=== PATIENT | female | born 1955 | race Native Hawaiian/Other Pacific Islander ===

== ENCOUNTER 2018-02-15 18:45 | Emergency (ER) | payer OTHER ==
[2018-02-15 18:47] VITALS: BMI 18.5
[2018-02-15 19:10] VITALS: TEMP 98.8
[2018-02-15] MEDS ORDERED: Sodium Chloride 0.9% 1,000 ML IV STA (19:30)
--- NOTE | 2018-02-15 19:35 | ED PDOC ---
Arrival/HPI - General Chief Complaint: Back Pain Time Seen by Provider: 02/15/18 19:23 - History of Present Illness Narrative History of Present Illness (Text): 62 y/o F c PMHx HTN, HLD, breast cancer 2009 s/p total mastectomy p/w L flank pain since last night. Pain is severe, intermittent, like a spasm, LLQ, radiating to L flank, associated with nausea and NBNB vomiting x 1. Denies fever , chills, chest pain, diarrhea, numbness, or weakness. Past Medical History - Cardiac Hx Cardiac Disorders: Yes Hx Hypertension: Yes - Pulmonary Hx Respiratory Disorders: No - Neurological Hx Neurological Disorder: No - HEENT Hx HEENT Disorder: No - Renal Hx Renal Disorder: No - Endocrine/Metabolic Hx Endocrine Disorders: No - Hematological/Oncological Other/Comment: breast cancer - Integumentary Hx Dermatological Disorder: No - Musculoskeletal/Rheumatological Hx Musculoskeletal Disorders: No - Gastrointestinal Hx Gastrointestinal Disorders: No - Genitourinary/Gynecological Hx Genitourinary Disorders: No - Psychiatric Hx Psychophysiologic Disorder: No Hx Substance Use: No - Surgical History Hx Mastectomy: Yes (left) Family/Social History Family/Social History: No Known Family HX Smoking Status: Never Smoked Hx Alcohol Use: No Hx Substance Use: No Allergies/Home Meds Allergies/Adverse Reactions: Allergies Penicillins Allergy (Verified 02/15/18 19:18) RASH Home Medications: Home Meds Medication Instructions Recorded Confirmed Simvastatin [Simvastatin] 20 mg PO DAILY 09/29/15 02/15/18 amLODIPine [Norvasc] 10 mg PO DAILY 09/29/15 02/15/18 Review of Systems - Physician Review All systems were reviewed & negative as marked: Yes - Review of Systems Constitutional: absent: Fevers Respiratory: absent: SOB Physical Exam - Physical Exam Narrative Physical Exam (Text): Gen: NAD Head: NC/AT Eyes: PERRL ENT: MMM Neck: Supple Chest: No tenderness CV: Murmur Lungs: CTA b/l Abd: Soft, NT Back: L CVA tenderness Skin: No rash Extremities: No swelling Neuro: Alert, no focal deficit Vital Signs Temp Pulse Resp BP Pulse Ox 02/15/18 21:42 84 18 148/82 100 02/15/18 21:12 88 24 162/88 H 99 02/15/18 19:09 98.8 F 90 24 163/90 H 96 Medical Decision Making ED Course and Treatment: 02/15/18 20:31 IMPRESSION: 6 x 5 mm obstructing left UPJ calculus with mild left hydronephrosis. Patient offered admission for pain control but she stated she will try to take pain medication at home. TECHNOLOGY SUPPORT ANALYST checked, 1 previous precription in previous year. Counseled on risks of narcotic use. Dr. Gomez, [facility] office number given, Dr. Gomez requests fax of CT report and face sheet. - Lab Interpretations Lab Results: 02/15/18 19:40 02/15/18 19:40 Lab Results 02/15/18 21:07: Urine Color Colorless, Urine Appearance Clear, Urine pH 6.5, Ur Specific [place] 1.010, Urine Protein Negative, Urine Glucose (UA) Negative, Urine Ketones Trace H, Urine Blood Negative, Urine Nitrate Negative, Urine Bilirubin Negative, Urine Urobilinogen 0.2, Ur Leukocyte Esterase Negative, Urine HCG, Qual Negative 02/15/18 19:40: Sodium 142, Potassium 3.6, Chloride 94 L, Carbon Dioxide 33, Anion Gap 19, BUN 36 H, Creatinine 1.3 H, Est GFR ( Amer) 50, Est GFR ( Non-Af Amer) 41, Random Glucose 153 H, Calcium 11.5 H, Total Bilirubin 0.7, AST 57 H, ALT 42, Alkaline Phosphatase 59, Total Protein 7.3, Albumin 4.4, Globulin 2.9, Albumin/Globulin Ratio 1.5 02/15/18 19:40: WBC 8.8, RBC 4.81, Hgb 14.1, Hct 40.6, MCV 84.4, MCH 29.3, MCHC 34.7, RDW 12.9, Plt Count 186, MPV 10.0, Gran % 92.3 H, Lymph % (Auto) 6.6 L, [place] % (Auto) 1.1, Eos % (Auto) 0.0 L, Baso % (Auto) 0.0, Gran # 8.09 H, Lymph # (Auto) 0.6 L, [place] # (Auto) 0.1, Eos # (Auto) 0.0, Baso # (Auto) 0.00, Neutrophils % (Manual) 89 H, Band Neutrophils % 2, Lymphocytes % (Manual) 5 L, Monocytes % (Manual) 4, Platelet Evaluation Normal - RAD Interpretation Radiology Orders: 02/15/18 19:31 ABD & PELVIS W/O PO OR IV CONT [CT] Stat - Medication Orders Current Medication Orders: Discontinued Medications Sodium Chloride (Sodium Chloride 0.9%) 1,000 mls @ 999 mls/hr IV .Q1H1M STA Stop: 02/15/18 20:30 Last Admin: 02/15/18 20:20 Dose: 999 mls/hr eMAR Start Stop Document 02/15/18 20:20 ROBBIE (Rec: 02/15/18 20:20 ROBBIE [id number]) Intravenous Solution Start Date 02/15/18 Start Time 20:20 End Date 02/15/18 End time 20:20 Total Infusion Time 0 Ketorolac Tromethamine (Toradol) 30 mg IVP STAT STA Stop: 02/15/18 19:31 Last Admin: 02/15/18 20:19 Dose: 30 mg MAR Pain Assessment Document 02/15/18 20:19 ROBBIE (Rec: 02/15/18 20:20 ROBBIE [id number]) Pain Reassessment Is this a pain reassessment? No IVP Administration Document 02/15/18 20:19 ROBBIE (Rec: 02/15/18 20:20 ROBBIE [id number]) Charges for Administration # of IVP Administrations 1 Morphine Sulfate (Morphine) 4 mg IVP STAT STA Stop: 02/15/18 21:07 Last Admin: 02/15/18 21:12 Dose: 4 mg MAR Pain Assessment Document 02/15/18 21:12 ROBBIE (Rec: 02/15/18 21:12 ROBBIE [id number]) Pain Reassessment Is this a pain reassessment? Yes Presence of Pain Presence of Pain Yes Pain Scale Used Pain Scale Used Numeric Description Intensity of Pain at present 6 IVP Administration Document 02/15/18 21:12 ROBBIE (Rec: 02/15/18 21:12 ROBBIE [id number]) Charges for Administration # of IVP Administrations 1 Ondansetron HCl (Zofran Inj) 8 mg IVP STAT STA Stop: 02/15/18 19:31 Last Admin: 02/15/18 20:20 Dose: 8 mg IVP Administration Document 02/15/18 20:20 ROBBIE (Rec: 02/15/18 20:20 ROBBIE [id number]) Charges for Administration # of IVP Administrations 1 Tamsulosin HCl (Flomax) 0.4 mg PO STAT STA Stop: 02/15/18 19:32 Last Admin: 02/15/18 20:19 Dose: 0.4 mg Disposition/Present on Arrival - Present on Arrival Any Indicators Present on Arrival: No History of DVT/PE: No History of Uncontrolled Diabetes: No Urinary Catheter: No History of Decub. Ulcer: No History Surgical Site Infection Following: None - Disposition Have Diagnosis and Disposition been Completed?: Yes Diagnosis: Nephrolithiasis Disposition: HOME/ ROUTINE Disposition Time: 20:38 Patient Plan: Discharge Patient Problems: Current Active Problems Problem Status Onset Nephrolithiasis Acute Condition: STABLE Discharge Instructions (ExitCare): Kidney Stones in Adults Prescriptions: Acetaminophen [Tylenol 325mg tab] 2 tab PO Q4H #30 tab Ondansetron ODT [Zofran ODT] 4 mg PO Q8 #12 odt oxyCODONE/Acetaminophen [Percocet 5/325 mg Tab] 1 tab PO Q6 #10 tab oxyCODONE/Acetaminophen [Percocet 5/325 mg Tab] 2 tab PO Q4H #20 tab Tamsulosin [Flomax] 0.4 mg PO DAILY #5 cap Referrals: Kathy Gomez MD [Staff Provider] - Follow up with primary Forms: [email or web address] (Setswana)
[2018-02-15 20:08] LABS: GRAN # 8.09 (1.4-6.5); GRAN % 92.3 % (50.0-68.0); HEMOGLOBIN 14.1 g/dL (12.0-16.0); LYMPH # 0.6 (1.2-3.4); LYMPH % 6.6 % (22.0-35.0); MEAN CELL VOLUME 84.4 fl (80.0-105.0); MEAN CORPUSCULAR HEMOGLOBIN 29.3 pg (25.0-35.0); MEAN CORPUSCULAR HGB CONC 34.7 g/dl (31.0-37.0); MONO # 0.1 (0.1-0.6); MONO % 1.1 % (1.0-6.0); PLATELET COUNT 186 10^3/uL (120.0-450.0); RBC 4.81 10^6/uL (3.5-6.1); RED CELL DISTRIBUTION WIDTH 12.9 % (11.5-14.5); WHITE BLOOD COUNT 8.8 10^3/ul (4.5-11.0)
[2018-02-15 20:20] LABS: ALB/GLOB RATIO 1.5 (1.1-1.8); ALBUMIN 4.4 g/dL (3.0-4.8); CALCIUM 11.5 mg/dL (8.4-10.5)
[2018-02-15 20:31] LABS: BAND 2 % (0-2); LYMPHOCYTE 5 % (22.0-35.0); MONOCYTE 4 % (1.0-6.0); NEUTROPHIL 89 % (50.0-70.0); PLATELET ESTIMATE NORMAL (NORMAL)
[2018-02-15] MEDS ORDERED: Morphine 5 MG/ML SYRINGE IVP STA (21:05)
[2018-02-15] MEDS ORDERED: Morphine 4 mg/ml ISec IVP STA (21:06)
[2018-02-15] MEDS ORDERED: Morphine 4 mg/ml ISec ONE (21:09)
[2018-02-15 21:23] LABS: PH,URINE 6.5 (4.7-8.0); URINE BILIRUBIN NEGATIVE (NEGATIVE); URINE BLOOD NEGATIVE (NEGATIVE); URINE GLUCOSE (UA) NEGATIVE (NEGATIVE); URINE LEUKOCYTE ESTERASE NEGATIVE Leu/uL (NEGATIVE); URINE PROTEIN NEGATIVE mg/dL (<30 mg/dL); URINE UROBILINOGEN 0.2 E.U./dL (<1 E.U./dL)
[2018-02-15 21:24] LABS: URINE APPEARANCE CLEAR (CLEAR); URINE COLOR COLORLESS (YELLOW)
[2018-02-15 21:26] LABS: HCG,QUALITATIVE URINE NEGATIVE (NEGATIVE)
[2018-02-15 21:44] VITALS: BP 148/82; PULSE 84; RESP 18; O2SAT 100
--- NOTE | 2018-02-16 09:08 | CT ---
PROCEDURE: CT Abdomen and Pelvis without intravenous contrast HISTORY: L flank pain COMPARISON: None. TECHNIQUE: Technique. Contrast dose: Radiation dose: Total exam DLP = 210 mGy-cm. This CT exam was performed using one or more of the following dose reduction techniques: Automated exposure control, adjustment of the mA and/or kV according to patient size, and/or use of iterative reconstruction technique. FINDINGS: LOWER THORAX: Unremarkable. LIVER: Unremarkable. No gross lesion or ductal dilatation. GALLBLADDER AND BILE DUCTS: Large amount of layering sludge in the gallbladder noted. No gallstones seen. No bile duct dilatation PANCREAS: Unremarkable. No gross lesion or ductal dilatation. SPLEEN: Unremarkable. ADRENALS: Normal left adrenal gland. 0.0 x 1.3 cm right adrenal mass - right adrenal cyst perhaps 40 units is favored. KIDNEYS AND URETERS: A 6 mm left ureteral pelvic junctional obstructing calculus with secondary left hydronephrosis is present. A medial left lower renal pole intraparenchymal 1 to 2 mm nonobstructing calcification is also present. VASCULATURE: Atherosclerotic vascular calcifications present. . No aortic aneurysm. BOWEL: Rectosigmoid diverticulosis. No gross complicating diverticulitis. No obstruction. No gross mural thickening. APPENDIX: Unremarkable. Normal appendix. PERITONEUM: Unremarkable. No free fluid. No free air. LYMPH NODES: Unremarkable. No enlarged lymph nodes. BLADDER: Unremarkable. REPRODUCTIVE: At the inferior bladder and cervical level, 3 to 4 mm calcification is noted. This is probably extrinsic to the bladder (sagittal series 602, image 67) . BONES: No acute fracture. Right sacral 9 mm sclerotic lesion - nonspecific -bone [place] 1 consideration. Blastic metastatic lesion not excluded correlation with patient's oncological history needed ; if negative bone island most likely Minimal bilateral sacroiliac arthrosis OTHER FINDINGS: No bowel containing hernia suggested IMPRESSION: A 6 mm left proximal ureter/ ureteral pelvic junctional obstructing calculus with secondary left hydronephrosis. A medial left lower renal pole intraparenchymal 1 to 2 mm nonobstructing calcification is also present . Benign-appearing right adrenal mass - like the adrenal cyst. Gallbladder sludge Discordant results - additional findings not the offered in the (preliminary interpretation) provided by [facility] are: . right adrenal (benign-appearing) mass noted . And additional 1 to 2 mm left lower renal pole calcification/calculus and gallbladder sludge
== END 2018-02-15 22:14 | disposition home or self-care (01) ==
LOC: ED 18:45
DX: N20.0 Calculus of kidney (principal); I10 Essential (primary) hypertension
CPT/HCPCS: 74176; 80053; 81003; 84703; 85025; 87086; 96374; 96375; 99282; J1885; J2270; J2405; J7040